=== PATIENT | male | born 1980 | race Caucasian/White ===

== ENCOUNTER → 2018-10-21 | Outpatient (CLI) | payer OTHER ==
--- NOTE | 2018-10-21 16:01 | CT ---
EXAMINATION TYPE: CT lumbar spine wo con DATE OF EXAM: 10/21/2018 COMPARISON: None HISTORY: 38-year-old male low back pain TECHNIQUE: Contiguous axial scanning of the lumbar spine without IV contrast. Coronal and sagittal re constructions performed. CT DLP: 375.0 mGycm Automated exposure control for dose reduction was used. FINDINGS: Small bilateral renal calculi, right greater left, measuring up to 3 mm. No hydronephrosis on either side. Vertebral body heights are preserved. There are bilateral L5 pars defects with grade 1 anterolisthesis at L5-S1 and scattered mild degenera tive disc space narrowing throughout with mild disc bulging. No significant spinal canal stenosis is identified. Mild facet arthropathy lower lumbar spine. On the left, changes result in a moderate neuroforaminal stenosis at L5-S1. On the right, changes result in mild to moderate neural foraminal stenosis at L5-S1 and mild at L4-L5 . IMPRESSION: 1. MILD MULTILEVEL DEGENERATIVE DISC DISEASE. 2. BILATERAL L5 PARS DEFECTS WITH GRADE 1 ANTEROLISTHESIS AT L5-S1. 3. AT L5-S1, CHANGES RESULT IN MODERATE LEFT AND [id number] RIGHT NEUROFORAMINAL STENOSIS. 4. NO SPINAL CANAL STENOSIS. 5. BILATERAL NONOBSTRUCTIVE RENAL CALCULI MEASURING UP TO 3 MM, RIGHT GREATER THAN LEFT.
== END | disposition home or self-care (01) ==
LOC: RADCTMAIN 13:27
PROVIDERS: ATTEND Physician Assistant
DX: M48.061 Spinal stenosis, lumbar region without neurogenic claudication (principal); M51.36 Other intervertebral disc degeneration, lumbar region; M43.17 Spondylolisthesis, lumbosacral region
CPT/HCPCS: 72131

== ENCOUNTER → 2018-11-04 | Outpatient (CLI) | payer OTHER ==
[2018-11-04 11:21] VITALS: BP 122/79; PULSE 84; RESP 16
--- NOTE | 2018-11-05 10:21 | P.PAINCN ---
History of Present Illness - Reason for Consult Consult date: 11/04/18 - History of Present Illness This is the initial consultation visit for this 38-year-old man with chronic history of severe low back pain is certainly more than 10 years ago, he denies any initiating event, he reported that the pain intensity increased over time, he was treated previously with the physical therapy without any benefit , and he is using pain medication [place] 5/325 with minimal benefit, also patient complai loraine of some neck pain with admission to the shoulder blade area, and he had some numbness and tingling sensation in both hands starts from the wrist towards the fingers, he reported that he is diagnosed with carpal tunnel syndrome and he had multiple injections done on both hands, for the treatment of carpal tunnel syndrome and he had partial benefit from the carpal tunnel injection, he is very resistant to have carpal tunnel surgery, and he is currently reporting that most of his pain in the low back area , and he wanted to find there is anything can be done to help his low back pain, 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 He denies any change in the bowel movement or urination, he denies any motor or sensory deficit. Past Medical History Past Medical History: No Reported History History of Any Multi-Drug Resistant Organisms: None Reported Past Surgical History: No Surgical Hx Reported Past Psychological History: No Psychological Hx Reported Smoking Status: Current every day smoker Past Alcohol Use History: Daily, Occasional Additional Past Alcohol Use History / Comment(s): "3-6 beer every night." Past Drug Use History: Marijuana, Opiates Medications and Allergies Home Medications Medication Instructions Recorded Confirmed Type Cetirizine HCl [Zyrtec] 10 mg PO DAILY 03/22/16 11/04/18 History Hydrocodone/Acetaminophen [[place] 1 each PO Q6HR PRN #20 tab 03/22/16 11/04/18 Rx 5-325] Omeprazole [PriLOSEC] 20 mg PO AC-BRKFST 03/22/16 11/04/18 History DULoxetine HCL [Cymbalta] 40 mg PO DAILY 11/04/18 11/04/18 History Allergies Allergy/AdvReac Type Severity Reaction Status Date / Time No Known Allergies Allergy Verified 11/04/18 11:04 Physical Exam Vitals: Vital Signs Pulse Resp BP Pulse Ox 11/04/18 11:10 84 16 122/79 84 L Social history : smoker , NO ETOH , NO Illegal drugs use . Review of Systems : - Constitutional : no chills , no fever , no night sweats , - Ears : no ear discharge , no change in hearing -Nose, Mouth ,Throat ; no bleeding gums, no sore throat , no epistaxis , -Cardiovascular : Denies chest pain, , no orthopnea , no palpitation -Respiratory : Denies cough , no dyspnea , no hemoptysis -Gastrointestinal :, no change in bowel habits , no coffee- ground emesis . -Genitourinary : No hematuria , no discharge , no incontinence, -Musculoskeletal : No gait dysfunction , report low back pain , and neck pain , - Neurological : no ataxia , no tremor , no sezure , -Psychatric , no suicidal ideation no hallucination - Endocrine : no cold intolerence , no polyuria , no polydypsia , -Hematologic : no easy bleeding , no easy brusing , -Allergic / immunology : no angioedema , no wheezing ,no allergic rhinitis -Integumentary : no brttle nails , no change hair / nails , no f oot/leg ulcers . Physical Examinations : -Constitutional : Cooperative , not in acute distress . -HEENT : nech ; supple , no Lymphadenopathy , no Thyromegaly , :eyes , no icterus, no photophobia . ENT : , normal oropharynx , no Thrush - Respiratory : Chest clear to auscultations Bilaterally , no wheezing . - Cardiovascular : regular rate and rhythem , S1 , S2 , no S3 , no S4. - Gastrointestinal: abdomen soft no tenderness , no organomegally . - Genitourinary : Defferred . -Integumentary : No cellulitis , no ulcers , normal skin turgor , no cyanotic . - neurologic : Cranial nerve II to XII intact , no focal neurological deffecit -psychatric : alert , oriented X 3 , appropriate affect , intact judgment and insight . -Lymphatic : no Lymphadenopathy. - musculoskeltal: normal gait Cervical Spine motor stregnth in the deltoid and biceps, normal right side , normal Left side motor stregnth biceps and the wrist extensors normal right side ,normal left side . motor stregnth in the triceps muscle . normal Right side , normal Left side deep tendon reflexes normal at the biceps , normal at Brachioradialis , normal at triceps. Spurling test = negative bilaterally Neck distraction test= negative bilaterally Samaniego sign= negative bilaterally positive cervical facet loading test . Lumber spine moter stegnth lower extremities ,thigh and legs 5/5 Right side , 5/5 Left side deep tendon reflexes : normal Knee Jerk , normal ankle Jerk positive lumber facet Loading Test Range of motion of the lumbar spine Flexion 30 degrees, extension 10 degrees strait leg raising test is negative bilaterally Fabere test negative bilaterally tenderness over the sacroiliac joint on the right side, and on the left side Results Comments: Diagnostic study of the lumbar spine= multilevel lumbar degenerative disc disease and anterolisthesis and facet arthropathy Assessment and Plan Plan: Assessment and plan= chronic severe low back pain secondary to lumbar spondylosis Patient would be good candidate to have diagnostic medial branch block lumbar area at L3 4, L4 5, L5-S1 x2 , Benefits of the procedure radiofrequency ablation of the medial branch. Chronic neck pain secondary to cervical spondylosis with orders MRI of the cervical spine to identify the etiology Time with Patient: Greater than 30 PQRS Measure Charge Sheet Measure #130: Documentation of Current Meds in Medical Chart: Patient's medications documented in chart Measure #226: Tobacco Use: Screen & Cessation Intervention: Pt screened for tobacco use AND intervention given Measure #111: Pneumonia Vaccination: Pneumococcal vaccine NOT administered or previously given Measure #47: Advance Care Plan: Advance care planning discussed & documented, pt chose/unable to give Measure #412: Opioid Treatment Agreement: No documentation of signed opioid treatment agreement Measure #408: Opioid Therapy Follow-up Evaluation: Patient had NO f/u eval minimum every 3 months during opioid therapy Measure #317: Preventitive Care & Scrn High Bld Press & F/U: Normal blood pressure, f/u not required Measure #128: Body Mass Index (BMI) Screening & Follow-up: BMI documented within normal parameters Measure #131: Pain Assessment & Follow-up: Pain positive & plan documented, Follow-up scheduled Measure #431: Unhealthy Alcohol Use Preventative Care & Scrn: Patient not identified as an unhealthy alcohol user PQRS Narrative: Smoking Status Current every day smoker Do You Want the Pneumonia No Vaccine AT THIS TIME? Blood Pressure 122/79 Pain Intensity [Bilateral 6 Posterior Neck] Scale Used Numeric (1 - 10) Hx Alcohol Use (MH) Yes: daily Home Medications: Ambulatory Orders Cetirizine HCl [Zyrtec] 10 mg PO DAILY 03/22/16 Hydrocodone/Acetaminophen [[place] 5-325] 1 each PO Q6HR PRN #20 tab 03/22/16 Omeprazole [PriLOSEC] 20 mg PO AC-BRKFST 03/22/16 DULoxetine HCL [Cymbalta] 40 mg PO DAILY 11/04/18
== END ==
LOC: PNWHC3 10:57
PROVIDERS: ATTEND Specialist
DX: G89.29 Other chronic pain (principal); M47.816 Spondylosis without myelopathy or radiculopathy, lumbar region; M47.812 Spondylosis without myelopathy or radiculopathy, cervical region; F17.200 Nicotine dependence, unspecified, uncomplicated; Z79.899 Other long term (current) drug therapy
CPT/HCPCS: 99211

== ENCOUNTER → 2018-11-30 | Outpatient (CLI) | payer OTHER ==
--- NOTE | 2018-11-30 15:11 | XR ---
Bilateral RIBS with chest x-ray HISTORY: Chest pain 4 views of left and right ribs with frontal chest x-ray obtained on a total of 9 images No comparisons The cardiomediastinal silhouette is within normal limits. There is no evident airspace disease, pneum othorax, or pleural effusion. No displaced rib fracture. IMPRESSION: No acute abnormality. Bone scan may be of increased sensitivity as indicated.
--- NOTE | 2018-11-30 15:12 | XR ---
Sternum HISTORY: Trauma and pain 2 views of the sternum No depressed sternal fracture evident. Mild soft tissue swelling suspected. IMPRESSION: No fracture or dislocation evident.
== END ==
LOC: RADXRYALE 14:25
PROVIDERS: ATTEND Physician Assistant
DX: R07.9 Chest pain, unspecified (principal)
CPT/HCPCS: 71111; 71120

== ENCOUNTER → 2018-12-15 | Outpatient (CLI) | payer OTHER ==
--- NOTE | 2018-12-15 16:45 | MR ---
EXAMINATION TYPE: MR cervical spine wo con DATE OF EXAM: 12/15/2018 COMPARISON: None HISTORY: Spondylosis without myelopathy or radiculopathy CONTRAST: Performed utilizing 0 mL intravenous Gadavist gadolinium contrast. TECHNIQUE: Multiplanar multiecho imaging on a 3.0 Arlette magnet is performed through the cervical spin e. FINDINGS: The craniovertebral junction is normal. Vertebral body alignment is normal. There is str aightening of the cervical spine with slight kyphosis centered at C5. Disc desiccation is present C2- 3 through C5-6. C7-T1: No focal disc herniation or significant disc bulge is evident. No spinal canal stenosis or n eural foraminal stenosis is present. C6-7: No focal disc herniation or significant disc bulge is evident. No spinal canal stenosis or luis ral foraminal stenosis is present. C5-6: Large central disc bulge is present with moderate anterior thecal sac compression. This has savi e subligamentous disc extension into the right paracentral region. No cord contact is evident. No AP spinal canal stenosis is present. Uncovertebral joint hypertrophy with mild foraminal narrowing is pr esent. C4-5: Broad-based disc bulge has mild anterior thecal sac flattening. No AP spinal canal stenosis pre sent. Neural foramen are patent. C3-4: No focal disc herniation or significant disc bulge is evident. No spinal canal stenosis or luis ral foraminal stenosis is present. Very tiny left paracentral subligamentous disc herniation may be p resent with minimal anterior thecal sac contact. This appears to be predominantly posterior to the C3 level, most likely from the C2-3 disc level. C2-3: No focal disc herniation or significant disc bulge is evident. No spinal canal stenosis or luis ral foraminal stenosis is present. IMPRESSIONS: 1. Broad-based central disc bulging with some subligamentous disc extension C5-6. This has moderate a nterior thecal sac compression without cord contact or stenosis. 2. Broad-based disc bulge C4-5 without spinal canal stenosis or cord contact. 3. Mild foraminal narrowing from uncovertebral joint hypertrophy C5-6.
== END | disposition home or self-care (01) ==
LOC: RADMRIMAIN 13:09
PROVIDERS: ATTEND Specialist
DX: M48.02 Spinal stenosis, cervical region (principal); M50.221 Other cervical disc displacement at C4-C5 level; M53.82 Other specified dorsopathies, cervical region
CPT/HCPCS: 72141

== ENCOUNTER → 2018-12-21 | Outpatient (CLI) | payer OTHER ==
[2018-12-21 12:49] VITALS: BP 132/95; PULSE 88; RESP 16
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
== END ==
LOC: PNWHC3 12:24
PROVIDERS: ATTEND Hospitalist
DX: M50.30 Other cervical disc degeneration, unspecified cervical region (principal); M47.816 Spondylosis without myelopathy or radiculopathy, lumbar region
CPT/HCPCS: 99211

== ENCOUNTER 2020-09-14 06:55 | Day surgery (SDC) | payer OTHER ==
[2020-09-10 15:51] VITALS: BMI 22.0
--- NOTE | 2020-09-14 06:50 | P.GSHP ---
History of Present Illness H&P Date: 09/14/20 CHIEF COMPLAINT: Inguinal hernia, right. HISTORY OF PRESENT ILLNESS: The patient is a 40-year-old male who presents with a history of swelling and pain along the right groin for over six months. He has noted increased swelling including pain of the area. Now he presents for repair of his inguinal hernia. PAST MEDICAL HISTORY: Please see list. PAST SURGICAL HISTORY: Please see list. MEDICATIONS: Please see list. ALLERGIES: Please see list. SOCIAL HISTORY: Tobacco use FAMILY HISTORY: No reports of Crohn disease or ulcerative colitis. REVIEW OF ORGAN SYSTEMS: CONSTITUTIONAL: No fevers or chills. No recent weight loss. EYES: Denies any trouble with vision. No glasses. HEENT: No difficulties with hearing. No nosebleeds. No difficulty swallowing. RESPIRATORY: Denies pneumonia. Denies any troubles with breathing or dyspnea on exertion. CARDIOVASCULAR: Denies any chest pain, palpitations, or recent heart attacks. GASTROINTESTINAL: Denies fatty food intolerance. Denies change in bowel habits and gas bloat. Has gastroesophageal reflux disease. GENITOURINARY: Denies any blood in urine or increased urinary frequency. NEUROLOGICAL: Denies any numbness or tingling along the distal extremities. No seizure disorders or headaches. Has chronic pain syndrome. MUSCULOSKELETAL: Has back pain, stiffness or joint arthritis. SKIN: No current skin cancer. No rash. PSYCHIATRIC: Has depressive disorder. No suicidal thoughts. ENDOCRINE: Denies current thyroid disorders. Denies any blood sugar glucose intolerance. HEME/LYMPHATIC: Denies any lumps and bumps around the neck. No recent deep venous thrombosis. ALLERGY/IMMUNOLOGY: No immunoglobulin therapy. No immune deficiencies. BREAST: Denies current breast lumps, pain or nipple discharge. PHYSICAL EXAM: VITAL SIGNS: Stable GENERAL: Well-developed pleasant in no acute distress. HEENT: No scleral icterus. Extraocular movements grossly intact. Moist buccal mucosa. NECK: Supple without lymphadenopathy. CHEST: Unlabored respirations. Equal bilateral excursions. CARDIOVASCULAR: Regular rate and rhythm. Distal 2+ pulses. ABDOMEN: Soft, nondistended. No peritoneal signs. Swelling along right groin. MUSCULOSKELETAL: No clubbing, cyanosis, or edema. ASSESSMENT: 1. Inguinal hernia, right initial and symptomatic. PLAN: 1. Recommend proceeding robotic inguinal repair with mesh with possible bilateral approach. 2. Benefits and risks of surgical intervention was discussed including possibility of open technique. 3. DVT prophylaxis. 4. Antibiotic prophylaxis. 5. Non-narcotic pain management described. 6. Will need recent EKG. 7. He is elevated risk of complications due to tobacco abuse disorder. Past Medical History Past Medical History: GERD/Reflux Additional Past Medical History / Comment(s): INGUINAL HERNIA History of Any Multi-Drug Resistant Organisms: None Reported Past Surgical History: No Surgical Hx Reported Past Anesthesia/Blood Transfusion Reactions: No Reported Reaction Smoking Status: Current every day smoker - Past Family History Mother Family Medical History: No Reported History Medications and Allergies Home Medications Medication Instructions Recorded Confirmed Type Hydrocodone/Acetaminophen [[place] 1 each PO Q6HR PRN #20 tab 03/22/16 09/10/20 Rx 5-325] Omeprazole [PriLOSEC] 20 mg PO AC-BRKFST 03/22/16 09/10/20 History DULoxetine HCL [Cymbalta] 20 mg PO BID 11/04/18 09/10/20 History Allergies Allergy/AdvReac Type Severity Reaction Status Date / Time No Known Allergies Allergy Verified 09/10/20 15:41
[~2020-09-14 06:55] MED LIST: ACETAMINOPHEN TAB 500 MG TAB PO STA; DEXAMETHASONE SOD PHOSPHATE 4 MG/ML 1 ML VIAL IV ONE; GABAPENTIN 300 MG CAP PO STA; HEPARIN SODIUM,PORCINE 5,000 UNIT/ML 1 ML VIAL SQ PRN; LACTATED RINGERS 1,000 ML IV SCH; MELOXICAM 7.5 MG TAB PO STA; ONDANSETRON 4 MG/2 ML VIAL IVP ONE
[2020-09-14] MEDS ORDERED: TAMSULOSIN 0.4 MG CAP.ER.24H PO STA (07:09)
[2020-09-14 07:33] VITALS: RESP 16; TEMP 97.6
[2020-09-14] MEDS ORDERED: LIDOCAINE 1% (10MG/ML) FOR IV START INTRADERMA ONE (07:47)
[2020-09-14 07:56] LABS: Basophils % (A) 1 %; Eosinophils # (A) 0.1 k/uL (0-0.7); Eosinophils % (A) 2 %; HCT 44.3 % (39.0-53.0); HGB 15.6 gm/dL (13.0-17.5); Lymphocytes # (A) 1.1 k/uL (1.0-4.8); Lymphocytes % (A) 24 %; MCH 32.9 pg (25.0-35.0); MCHC 35.1 g/dL (31.0-37.0); MCV 93.7 fL (80.0-100.0); Mean Platelet Volume 6.8; Monocytes # (A) 0.3 k/uL (0-1.0); Monocytes % (A) 6 %; Neutrophils # (A) 3.1 k/uL (1.3-7.7); Neutrophils % (A) 66 %; Platelet Count 250 k/uL (150-450); RBC 4.73 m/uL (4.30-5.90); RDW 11.7 % (11.5-15.5); WBC 4.7 k/uL (3.8-10.6)
[2020-09-14 08:06] LABS: ALT 19 U/L (4-49); AST 24 U/L (17-59); African American GFR (CKD) >90 (>60 ml/min/1.73 sqM); Albumin 4.8 g/dL (3.5-5.0); Alkaline Phosphatase 77 U/L (38-126); Anion Gap 8 mmol/L; Blood Urea Nitrogen 15 mg/dL (9-20); Calcium 9.9 mg/dL (8.4-10.2); Carbon Dioxide 25 mmol/L (22-30); Chloride 106 mmol/L (98-107); Glucose 127 mg/dL (74-99); Non-African American GFR(CKD) >90 (>60 ml/min/1.73 sqM); Potassium 3.8 mmol/L (3.5-5.1); Sodium 139 mmol/L (137-145); Total Bilirubin 0.8 mg/dL (0.2-1.3); Total Protein 7.9 g/dL (6.3-8.2)
[2020-09-14] MEDS ORDERED: fentaNYL (PF) 50 MCG/ML 2 ML AMP IVP ONE (08:54)
[2020-09-14] MEDS ORDERED: MIDAZOLAM 2 MG/2 ML VIAL IVP ONE (08:54)
[2020-09-14] MEDS ORDERED: DEXAMETHASONE SOD PHOSPHATE 4 MG/ML 1 ML VIAL ONE (09:10)
[2020-09-14] MEDS ORDERED: LIDOCAINE 1% INJ 10MG/ML (20 ML MDV) ONE (09:10)
[2020-09-14] MEDS ORDERED: SUCCINYLCHOLINE CHLORIDE 100 MG/5 ML SYR IV ONE (09:10)
[2020-09-14] MEDS ORDERED: PROPOFOL 10 MG/ML 20 ML VIAL IV ONE (09:10)
[2020-09-14] MEDS ORDERED: ROPIVACAINE 5 MG/ML 30 ML VIAL ONE (09:10)
[2020-09-14] MEDS ORDERED: fentaNYL (PF) 50 MCG/ML 2 ML AMP ONE (09:10)
[2020-09-14] MEDS ORDERED: GLYCOPYRROLATE 0.2 MG/ML 2 ML VIAL ONE (09:10)
[2020-09-14] MEDS ORDERED: MIDAZOLAM 2 MG/2 ML VIAL ONE (09:10)
[2020-09-14] MEDS ORDERED: NEOSTIGMINE 1 MG/ML 10 ML VIAL ONE (09:10)
[2020-09-14] MEDS ORDERED: ROCURONIUM 10 MG/ML (5 ML VIAL) IV ONE (09:10)
[2020-09-14] MEDS ORDERED: BUPIVACAINE-EPI 0.5%-1:200,000 10 ML VIAL SQ ONE (09:39)
--- NOTE | 2020-09-14 09:52 | P.ANPRN ---
Procedure Note - Anesthesia - Nerve Block Performed Bilateral Transversus Abdominis Single Time Out Performed: Yes (852) Date of Procedure: 09/14/20 Procedure Start Time: 08:53 Procedure Stop Time: 09:01 Location of Patient: PreOp Indication: Acute Post-Operative Pain, Requested by Surgeon Specifically requested for management of pain by : Kimmy Ohara Sedation Type: Sedate with meaningful contact maintained Preparation: Sterile Prep Position: Supine Catheter: None Needle Types: Pajunk Needle Gauge: 21 Ultrasound used to visualize needle placement: Yes Ultrasound used to observe medication spread: Yes Injectate: 0.5% Ropivacaine (see comment for volume) (15cc each side, 30cc total) Blood Aspirated: No Pain Paresthesia on Injection Noted: No Resistance on Injection: Normal Image Stored and Saved: Yes Events: Uneventful and Well Tolerated
--- NOTE | 2020-09-14 10:45 | P.OP ---
Date of Procedure: 09/14/20 Description of Procedure: SURGEON: KIMMY OHARA MD PREOPERATIVE DIAGNOSES: 1. Initial right inguinal hernia. 2. Depressive disorder 3. Chronic pain syndrome 4. Tobacco abuse POSTOPERATIVE DIAGNOSES: 1. Initial right inguinal hernia. 2. Depressive disorder 3. Chronic pain syndrome 4. Tobacco abuse OPERATION: 1. Robotic-assisted [employer] Xi laparoscopic right inguinal hernia repair with mesh, 11.[address] 2. Excision of subfascial inguinal lipoma, 2 cm ANESTHESIA: General with local anesthetic ESTIMATED BLOOD LOSS: 5 mL. SPECIMENS REMOVED: Right inguinal hernia lipoma COMPLICATIONS: None. FINDINGS: 1. Nyhus type II direct inguinal hernia, reducible, initial, 2 cm 2. Non-absorbable 2-0 VLOC used INDICATIONS: The patient is a 40-year-old gentleman who presents with history of right groin pain. Now presents for definitive surgical intervention. Laparoscopic versus open and robotic approaches were discussed. Benefits and risks including bleeding, infection, injury to the vas deferens as well as sterility and chronic groin pain were reviewed. Placement of mesh was also described. Informed consent was obtained. DESCRIPTION: In the preoperative area, the patient was marked with indelible marker along the inguinal hernia. The patient was brought to the operating room and initially laid in supine position. The abdomen had been prepped and draped in standard sterile fashion. Ioban draping was also placed. Prior to incision, a timeout protocol was confirmed with surgical team regarding patient's name including procedures to be performed and location along the right groin. Initial positioning for the robotic assisted ports were selected whereby 20 cm superior to the target anatomy, 0 degree 5 mm laparoscopic trocar entry was performed at the left upper quadrant. The abdomen was insufflated to 15 mmHg which he had tolerated well. Diagnostic laparoscopy demonstrated a indirect inguinal hernia along the right groin. Next, along the epigastrium, 8 mm robot trocar was placed. An 8-mm robotic trocar was placed under direct visualization at the right upper quadrant. An 8 mm port was placed at the left upper quadrant. All trocars were positioned between 8 to 10-cm apart from each other. The [employer] XI robot was primed, draped, prepared for docking along the right side of the patient. The patient was placed in Trendelenberg position 14-degrees. I then went to the [email or web address] Xi console. The health assistant was at bedside for exchange of the robot arms and equipment. No hernia was identified along the left groin with the exception of mild weakness. The right inguinal hernia sac was evaginated whereby the peritoneum was scored using Endo scissors with cautery. Once completely reduced into the abdominal cavity, the peritoneal sac of the hernia was stripped along a direct inguinal hernia and a lipoma and sac was resected and then passed off for further pathological analysis. The size of the hernia defect was 2 cm with intraoperative films obtained. Using a 2-0 VLOC, the peritoneal defect of the right inguinal hernia site was closed using a pursestring suture. The defect was found to be completely closed with complete reduction of the right direct inguinal hernia was confirmed. As an onlay, an 11.[address] mesh by [employer] was initially cut in half and entered into the abdominal cavity via the 8 mm trocar. The mesh was tacked to the pelvis using nonabsorbable 2-0 VLOC 9-inch length sutures. The robot was undocked from the patient's bedside. I then rescrubbed into the case. Insufflation was released from the abdominal cavity and all instruments were removed from the abdominal cavity. The rest of incisions were reapproximated using 4-0 Monocryl in a running subcuticular fashion. Local anesthetic was placed along the incision including for a right groin block. Incisions were cleansed using dilute hydrogen peroxide. Liquid glue was applied to the skin. At the end of the procedure, the needle, sponge and instrument counts had been verified correct by the surgical clinical reviewer. The patient had tolerated the procedure well and was taken to the postanesthesia care unit in stable condition. Plan - Discharge Summary Discharge Rx Participant: Yes New Discharge Prescriptions: New Ibuprofen [Motrin] 600 mg PO Q8HR PRN #30 tab PRN Reason: Pain Acetaminophen Tab [Tylenol Tab] 1,000 mg PO Q6HR PRN #30 tablet PRN Reason: Pain Continue Omeprazole [PriLOSEC] 20 mg PO AC-BRKFST Hydrocodone/Acetaminophen [[place] 5-325] 1 each PO Q6HR PRN #20 tab PRN Reason: Pain DULoxetine HCL [Cymbalta] 20 mg PO BID Discharge Medication List Hydrocodone/Acetaminophen [[place] 5-325] 1 each PO Q6HR PRN #20 tab 09/03/16 [Rx] Omeprazole [PriLOSEC] 20 mg PO AC-BRKFST 03/22/16 [History] DULoxetine HCL [Cymbalta] 20 mg PO BID 11/04/18 [History] Acetaminophen Tab [Tylenol Tab] 1,000 mg PO Q6HR PRN #30 tablet 09/14/20 [Rx] Ibuprofen [Motrin] 600 mg PO Q8HR PRN #30 tab 09/14/20 [Rx] Follow up Appointment(s)/Referral(s): Kimmy Ohara MD [STAFF PHYSICIAN] - 09/18/20 Patient Instructions/Handouts: Laparoscopic Herniorrhaphy (DC), Inguinal Hernia Repair (DC), *[facility] - Managing Your Pain After Surgery Without Opioids Activity/Diet/Wound Care/Special Instructions: Using antibacterial soap. No lifting over 4 pounds 4 weeks, October 12November shower. No bathtub soaks for 2 weeks, September 28 Use ice along incisions for today to prevent swelling. Use Tylenol and ibuprofen or Aleve scheduled for the next 24-48 hours for best pain relief. Discharge Disposition: HOME SELF-CARE
[2020-09-14] MEDS: HYDROmorphone 0.5 MG/0.5 ML SYRINGE IVP PRN ×3 (11:16→11:33)
[2020-09-14] MEDS ORDERED: KETOROLAC 15 MG/ML 1 ML VIAL IVP ONE (11:45)
[2020-09-14] MEDS ORDERED: HYDROcodone/APAP 5-325MG 1 EACH TAB ONE ×2 (12:07→12:11)
[2020-09-14] MEDS ORDERED: HYDROcodone/APAP 5-325MG 1 EACH TAB PO ONE (12:12)
[2020-09-14 12:30] VITALS: BP 146/76; PULSE 65
== END 2020-09-14 13:00 | disposition home or self-care (01) ==
LOC: OR 06:55
PROVIDERS: ATTEND Surgery Plastic and Reconstructive Surgery
DX: K40.90 Unilateral inguinal hernia, without obstruction or gangrene, not specified as recurrent (principal); D17.79 Benign lipomatous neoplasm of other sites; F32.9 Major depressive disorder, single episode, unspecified; G89.4 Chronic pain syndrome; K21.9 Gastro-esophageal reflux disease without esophagitis; F17.210 Nicotine dependence, cigarettes, uncomplicated; Z79.899 Other long term (current) drug therapy
CPT/HCPCS: 49650; S2900; 64488; 80053; 85025; 88304; 93005

== ENCOUNTER → 2022-03-27 | Outpatient (CLI) | payer BC ==
--- NOTE | 2022-03-27 16:44 | XR ---
Left knee HISTORY: Pain 3 views the left knee Bone mineralization, joint spaces and alignment are maintained. No fracture or dislocation. Difficult to exclude small joint effusion, suprapatellar increased density is suspected. IMPRESSION: Difficult to exclude effusion, knee MRI may be of benefit
== END | disposition home or self-care (01) ==
LOC: RADXRYALE 15:25
PROVIDERS: ATTEND Physician Assistant
DX: M25.562 Pain in left knee (principal)

== ENCOUNTER → 2022-06-10 | Outpatient (CLI) | payer BC ==
--- NOTE | 2022-06-10 09:01 | MR ---
EXAMINATION TYPE: MR knee LT wo con DATE OF EXAM: 06/10/2022 COMPARISON: None HISTORY: Left knee pain, locking, and swelling for a couple months TECHNIQUE: Multiplanar, multisequence imaging of the left knee is performed without IV contrast. FINDINGS: MEDIAL MENISCUS: Anterior and posterior horns are intact without tear. LATERAL MENISCUS: Anterior and posterior horns are intact without tear. CRUCIATE LIGAMENTS: The anterior and posterior cruciate ligaments are intact and unremarkable. COLLATERAL LIGAMENTS: The medial collateral ligament and lateral collateral ligament complex are inta ct and unremarkable. EXTENSOR MECHANISM: Visualized quadriceps and patellar tendons are intact. EFFUSION: No significant suprapatellar joint effusion. POPLITEAL CYST: Medial ganglion cyst measuring 2.6 cm in length by 6 mm. TRICOMPARTMENT SPACES: Intact CARTILAGE: Intact BONE MARROW SIGNAL: No focal abnormal marrow signal is appreciated. OTHER: No additional significant abnormality is appreciated. IMPRESSION: Medial ganglion cyst. Otherwise unremarkable study.
== END | disposition home or self-care (01) ==
LOC: RADMRIMAIN 07:04
PROVIDERS: ATTEND Orthopaedic Surgery
DX: M67.462 Ganglion, left knee (principal); M25.562 Pain in left knee

== ENCOUNTER → 2023-01-30 | Outpatient (CLI) | payer BC ==
[2023-01-30 20:10] LABS: Basophils # (A) 0.04 X 10*3/uL (0.00-0.10); Basophils % (A) 0.5 %; Blood Urea Nitrogen 13.6 mg/dL (9.0-27.0); Calcium 9.4 mg/dL (8.7-10.3); Carbon Dioxide 21.7 mmol/L (21.6-31.8); Chloride 104 mmol/L (96-109); Eosinophils # (A) 0.05 X 10*3/uL (0.04-0.35); Eosinophils % (A) 0.7 %; Glucose 113 mg/dL (70-110); HCT 38.2 % (39.6-50.0); Lymphocytes # (A) 1.69 X 10*3/uL (0.90-5.00); Lymphocytes % (A) 22.7 %; MCV 94.1 FL (80.0-97.0); Mean Platelet Volume 9.7 FL (9.5-12.2); Monocytes # (A) 0.51 X 10*3/uL (0.20-1.00); Monocytes % (A) 6.8 %; NRBC Per 100 WBC 0 X 10*3/uL (0.00-0.01); Neutrophils # (A) 5.14 X 10*3/uL (1.80-7.70); Platelet Count 243 X 10*3/uL (140-440); Potassium 3.6 mmol/L (3.5-5.5); RBC 4.06 X 10*6/uL (4.40-5.60); RDW 11.8 % (11.5-14.5); Sodium 139 mmol/L (135-145); WBC 7.45 X 10*3/uL (4.50-10.00)
== END | disposition home or self-care (01) ==
LOC: LABWHC1 14:12
PROVIDERS: ATTEND Orthopaedic Surgery
DX: Z01.812 Encounter for preprocedural laboratory examination (principal); M23.92 Unspecified internal derangement of left knee
CPT/HCPCS: 36415; 80048; 85025

== ENCOUNTER 2023-02-06 08:29 | Day surgery (SDC) | payer BC ==
[2023-02-03 14:59] VITALS: BMI 22.0
--- NOTE | 2023-02-05 08:38 | P.HPOR ---
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 He notes diffuse pain with walking, standing, and stairs. He is having buckling. He is having night symptoms. He's tried medications in addition to an injection with partial relief. He notes daily pain that limits him. Review of Systems As per HPI Past Medical History Past Medical History: GERD/Reflux Additional Past Medical History / Comment(s): INGUINAL HERNIA History of Any Multi-Drug Resistant Organisms: None Reported Past Surgical History: Hernia Repair Additional Past Surgical History / Comment(s): RT INGUINAL HERNIA. ORIF LT ANKLE Past Anesthesia/Blood Transfusion Reactions: No Reported Reaction Smoking Status: Current every day smoker - Past Family History Mother Family Medical History: No Reported History Medications and Allergies Home Medications Medication Instructions Recorded Confirmed Type Acetaminophen Tab [Tylenol Tab] 1,000 mg PO Q6HR PRN #30 tablet 09/14/20 02/03/23 Rx Ibuprofen [Motrin] 600 mg PO Q8HR PRN #30 tab 09/14/20 02/03/23 Rx Cyclobenzaprine [Flexeril] 10 mg PO HS 02/03/23 02/03/23 History EPINEPHrine (Auto Inject) [Epipen] 0.3 mg IM ONCE PRN 02/03/23 02/03/23 History HYDROcodone/APAP 10-325MG [[place] 1 tab PO Q6HR PRN 02/03/23 02/03/23 History 10-325] Omeprazole 40 mg PO DAILY 02/03/23 02/03/23 History Allergies Allergy/AdvReac Type Severity Reaction Status Date / Time bee venom protein (honey bee) Allergy Anaphylaxis Verified 02/03/23 14:46 Physical Examination - Knee left Appearance: effusion Effusion grade: grade 1 Tenderness with palpation: medial, lateral Pain: throughout ROM Gait: limping ROM: extension: -5 degrees ROM: flexion: 140 degrees Crepitus with motion: Yes Strength: extension: 5/5 Strength: flexion: 5/5 Meniscal tests: lateral meniscal tests: positive, medial joint line pain: positive, lateral joint line pain: positive Results The patient is a well-developed well-nourished male approximately 5 foot 8, 140 pounds of mesomorphic habitus. HEENT exam is nonfocal, neck is supple. He has painless passive motion of his left hip. Straight leg raise is negative. He's tender about the medial and lateral joint line left knee. Ban's causes lateral pain. His distal neurovascular appears intact in the left lower extremity. - Diagnostic results Knee MRI: image reviewed (Left knee MRI is reviewed and shows evidence of a pos terior lateral meniscal tear) Assessment and Plan Assessment: Left knee internal derangement/symptomatic lateral meniscal tear Plan: I talked to the patient regarding his condition along with treatment options. At this point is having persistent pain and mechanical symptoms despite conservative measures. After a thorough discussion he opts to proceed with surgery. We'll plan to proceed with left knee arthroscopy with probable partial lateral meniscectomy. We will likely perform as an outpatient procedure. Risks and benefits are discussed in layman's terms.
[~2023-02-06 08:29] MED LIST changes: -ACETAMINOPHEN TAB 500 MG TAB PO STA; -GABAPENTIN 300 MG CAP PO STA; -HEPARIN SODIUM,PORCINE 5,000 UNIT/ML 1 ML VIAL SQ PRN; +HYDROmorphone 0.5 MG/0.5 ML SYRINGE IVP PRN; +LIDOCAINE 1% (10MG/ML) FOR IV START INTRADERMA PRN; -MELOXICAM 7.5 MG TAB PO STA; +MIDAZOLAM 2 MG/2 ML VIAL IV PRN
[2023-02-06] MEDS ORDERED: KETOROLAC 30 MG/ML 1 ML VIAL ONE (09:22)
[2023-02-06] MEDS ORDERED: HYDROmorphone (PF) 1 MG/ML ONE (09:22)
[2023-02-06] MEDS ORDERED: MIDAZOLAM 2 MG/2 ML VIAL ONE (09:22)
[2023-02-06] MEDS ORDERED: LIDOCAINE 2% INJ 20 MG/ML (2 ML VIAL) ONE (09:22)
[2023-02-06] MEDS ORDERED: fentaNYL (PF) 50 MCG/ML 2 ML AMP ONE (09:22)
[2023-02-06] MEDS ORDERED: PROPOFOL 10 MG/ML 20 ML VIAL IV ONE (09:22)
[2023-02-06] MEDS ORDERED: EPINEPHrine (PF) 1 ML in SODIUM CHLORIDE 0.9% IRRIGATIO 3,000 ML IRRIGATION ONE ×4 (09:37)
[2023-02-06] MEDS ORDERED: LACTATED RINGERS 1,000 ML IV ONE (10:13)
--- NOTE | 2023-02-06 10:14 | P.OP ---
Date of Procedure: 02/06/23 Preoperative Diagnosis: Left knee internal derangement Postoperative Diagnosis: Left knee bucket-handle lateral meniscal tear Procedure(s) Performed: Left knee arthroscopic partial lateral meniscectomy Anesthesia: ALDAIRA Surgeon: Sky Gomez Estimated Blood Loss (ml): 10 Pathology: none sent Condition: stable Disposition: PACU Indications for Procedure: The patient's a 42-year-old male who presents with persistent/progressive left knee pain and mechanical symptoms despite conservative measures. A discussion of the risks and benefits of operative intervention versus continued conservative measures was made with patient. He opted to proceed with surgery. Operative risks to include infection, neurovascular injury, development of blood clots, possible incomplete resolution of symptoms, possible worsening symptoms and need for subsequent procedures was discussed. Informed consent was obtained. Operative Findings: As below Description of Procedure: The patient was brought to the operating room, and after induction of general anesthesia examined the left knee. Collaterals were stable, Anastasiya was negative, and posterior drawer was negative. The left lower extremity was prepped and draped in a normal fashion. A superior lateral portal was made through a 3 mm skin incision superior and lateral to the patella. This was used for outflow. A lateral portal was made through a 5 mm vertical skin incision lateral to the patella tendon above the joint line. Diagnostic arthroscopy was performed. On inspection of the medial compartment, no significant cartilage or meniscal pathology was noted. On inspection of the notch, the anterior cruciate ligament appeared to be intact. On inspection of the lateral compartment, a bucket handle tear involving the lateral meniscus in the white- red junction was noted. This was macerated and did not appear amenable to repair. This was debrided back to stable base with straight baskets and a motorized shaver. The remaining lateral meniscus was stable and intact.. On inspection of the patellofemoral articulation, no significant articular pathology was noted. The gutters were clear debris. The knee was then thoroughly irrigated. The portals were closed with Steri-Strips. A sterile dressing was applied in addition to a compression stocking. The patient was awoken from general anesthesia and transferred to recovery room in good condition. Blood loss was estimated at 10 mL. No complications were incurred.
[2023-02-06 10:29] VITALS: TEMP 98
[2023-02-06] MEDS ORDERED: HYDROmorphone 0.5 MG/0.5 ML SYRINGE IVP ONE ×2 (10:34→10:42)
[2023-02-06 11:08] VITALS: RESP 16
[2023-02-06 11:32] VITALS: BP 148/91; PULSE 70
== END 2023-02-06 11:44 | disposition home or self-care (01) ==
LOC: OR 08:29
PROVIDERS: ATTEND Orthopaedic Surgery
DX: S83.252A Bucket-handle tear of lateral meniscus, current injury, left knee, initial encounter (principal); K21.9 Gastro-esophageal reflux disease without esophagitis; F17.200 Nicotine dependence, unspecified, uncomplicated; Z91.030 Bee allergy status; Z79.899 Other long term (current) drug therapy; X58.XXXA Exposure to other specified factors, initial encounter
CPT/HCPCS: 29881; J2250; J1100; J0690; J2405; J0171; J3010; J1885; J1170 ×2; J2704; J2001